=== PATIENT | female | born 1975 | race African-American/Black ===

== ENCOUNTER 2019-01-01 14:33 | Emergency (ER) | payer MEDICAID ==
[~2019-01-01] VITALS: Ht 165.1 cm; Wt 46.3 kg
[~2019-01-01 14:33] MED LIST: PANT40TA3 PO; POLY17PO6 PO
[2019-01-01 14:40] VITALS: Ht 165.1 cm; Wt 46.3 kg
[2019-01-01] MEDS ORDERED: FAMOTIDINE 20 MG TAB PO STA (15:41)
[2019-01-01] MEDS ORDERED: SOD CHLORIDE 0.9% 1,000 ML IV STA (15:41)
[2019-01-01] MEDS ORDERED: METOCLOPRAMIDE 10 MG INJ IV STA (15:41)
[2019-01-01] MEDS ORDERED: AL HYDROX/MG HYDROX/SIMETH 30 ML CUP PO ONE (16:00)
--- NOTE | 2019-01-01 18:50 | ERD ---
ER Documentation Chief Complaint Chief Complaint weak, possible low iron, last transfusion 4mth ago HPI 43-year-old female presenting with generalized weakness and epigastric pain that has been going on for quite some time. She is worried about anemia. She states she has a history of gastric ulcers and ran out of her medications for her stomach. Denies any melena or hematochezia. She is not currently taking her iron because it causes her constipation. She does endorse nausea with one episode of nonbloody and nonbilious vomiting today. No fevers or chills. No dysuria or hematuria. ROS All systems reviewed and are negative except as per history of present illness. Medications Home Meds Active Scripts Pantoprazole* (Protonix*) 40 Mg Tablet.dr, 40 MG PO DAILY, #30 TAB Prov:NISHANT GRIGGS MD 01/01/19 Polyethylene Glycol* (Miralax*) 17 Gm Powd.pack, 17 GM PO DAILY PRN for CONSTIPATION, #30 PACKET Prov:NISHANT GRIGGS MD 01/01/19 Allergies Allergies: Coded Allergies: Penicillins (Unverified Allergy, Unknown, 01/01/19) PMhx/Soc Medical and Surgical Hx: pt denies Surgical Hx Hx Miscellaneous Medical Probl: Yes (sickle cell trait, gastritis) Hx Alcohol Use: No Hx Substance Use: No Hx Tobacco Use: No Smoking Status: Never smoker FmHx Mother has breast cancer Family History: No diabetes Physical Exam Vitals Vital Signs Date Temp Pulse Resp B/P (MAP) Pulse Ox O2 O2 Flow FiO2 Time Delivery Rate 01/01/19 84 16 123/74 100 Room Air 15:46 (90) 01/01/19 98.1 75 18 140/71 100 14:40 (94) Physical Exam Const: No acute distress Head: Atraumatic Eyes: Normal Conjunctiva ENT: Normal External Ears, Nose and Mouth. Neck: Full range of motion. No meningismus. Resp: Clear to auscultation bilaterally Cardio: Regular rate and rhythm, no murmurs Abd: Soft, non tender, non distended. Normal bowel sounds Skin: No petechiae or rashes Back: No midline or flank tenderness Ext: No cyanosis, or edema Neur: Awake and alert Psych: Normal Mood and Affect Result Diagram: 01/01/19 1558 01/01/19 1558 Results 24 hrs Laboratory Tests Test 01/01/19 15:58 White Blood Count 5.4 10^3/ul Red Blood Count 5.36 10^6/ul Hemoglobin 7.9 g/dl Hematocrit 29.1 % Mean Corpuscular Volume 54.3 fl Mean Corpuscular Hemoglobin 14.7 pg Mean Corpuscular Hemoglobin Concent 27.1 g/dl Red Cell Distribution Width 22.8 % Platelet Count 487 10^3/UL Mean Platelet Volume fl Immature Granulocytes % 0.200 % Neutrophils % 59.2 % Lymphocytes % 32.0 % Monocytes % 6.9 % Eosinophils % 1.1 % Basophils % 0.6 % Nucleated Red Blood Cells % 0.0 /100WBC Immature Granulocytes # 0.010 10^3/ul Neutrophils # 3.2 10^3/ul Lymphocytes # 1.7 10^3/ul Monocytes # 0.4 10^3/ul Eosinophils # 0.1 10^3/ul Basophils # 0.0 10^3/ul Nucleated Red Blood Cells # 0.0 10^3/ul Sodium Level 141 mmol/L Potassium Level 3.5 mmol/L Chloride Level 105 mmol/L Carbon Dioxide Level 26 mmol/L Anion Gap 10 Blood Urea Nitrogen 6 mg/dl Creatinine 0.63 mg/dl Est Glomerular Filtrat Rate mL/min > 60 mL/min Glucose Level 93 mg/dl Calcium Level 9.6 mg/dl Total Bilirubin 0.4 mg/dl Direct Bilirubin 0.00 mg/dl Indirect Bilirubin 0.4 mg/dl Aspartate Amino Transf (AST/SGOT) 114 IU/L Alanine Aminotransferase (ALT/SGPT) 128 IU/L Alkaline Phosphatase 69 IU/L Total Protein 9.1 g/dl Albumin 4.7 g/dl Globulin 4.40 g/dl Albumin/Globulin Ratio 1.06 Lipase 68 U/L Current Medications Medications Dose Sig/Marquita Start Time Status Last (Trade) Ordered Route PRN Stop Time Admin Dose Reason Admin Sodium 1,000 ml @ Q1H STAT 01/01/19 DC 01/01/19 Chloride 1,000 mls/hr IV 15:41 16:18 01/01/19 16:40 10 mg ONCE STAT 01/01/19 DC 01/01/19 Metoclopramid IV 15:41 16:18 e HCl 01/01/19 15:44 (Reglan) Famotidine 20 mg ONCE STAT 01/01/19 DC 01/01/19 (Pepcid) PO 15:41 16:18 01/01/19 15:44 Al 30 ml ONCE ONCE 01/01/19 DC 01/01/19 Hydrox/Mg PO 16:00 16:18 Hydrox/Simeth 01/01/19 16:01 icone (Mag-Al Plus) Procedures/MDM EMERGENT LABS AND DIAGNOSTIC STUDIES: Lab Results above were reviewed and interpreted by me. CBC: Thrombocytosis of unclear etiology. evidence of anemia at 7.9 hemoglobin. CMP: Mild transaminitis, unclear etiology. No evidence of clinically significant electrolyte abnormality, acidosis, renal failure, hypoglycemia or biliary obstruction Lipase: no evidence of pancreatitis Troponin within normal limits, not indicative of cardiac ischemia Lactate within normal limits without evidence of sepsis or tissue hypoperfusion UA: no evidence of infection 12-lead EKG was interpreted by Andrea Griggs MD: Normal Sinus Rhythm Normal axis Normal intervals No acute ST or T wave changes suggestive of acute ischemia or STEMI. Radiology Results as interpreted by Radiology below were reviewed by Maggy Griggs MD: Chest x-ray shows no acute abnormalities Initial Nursing notes reviewed. Previous Medical Records requested via the Electronic Health Record. EMERGENCY DEPARTMENT COURSE / MEDICAL DECISION MAKING: Patient is presenting with generalized weakness and epigastric discomfort due to her gastric ulcers. I doubt cholecystitis, pancreatitis, appendicitis, bowel obstruction. No symptoms of GI bleed. Patient treated with medications. Upon reevaluation, she is feeling much better. I do suspect that there was some component of dehydration. I recommended restarting her Protonix and that we will give her MiraLAX for constipation. Advised restarting her iron supp lementation as well. Follow-up with a primary care doctor was discussed. I also discussed the findings of transaminitis on her labs and recommended follow- up for this as she will need further work-up. Patient understands discharge plan. Return precautions given. Patient's blood pressure was elevated (>120/80) but appears stable without evidence of hypertensive emergency or urgency. The patient was counseled about the risks of hypertension and urged to pursue outpatient monitoring and therapy within a week with their primary care physician. Departure Diagnosis: Primary Impression: Generalized weakness Additional Impressions: History of peptic ulcer Anemia Anemia type: unspecified type Qualified Codes: D64.9 - Anemia, unspecified Transaminitis Condition: Stable Patient Instructions: Anemia, Gastritis Vs. Ulcer Additional Instructions: Call your primary care doctor TOMORROW for an appointment during the next 1 WEEK.Tell the clerical secretary that you were referred from this facility.See the doctor sooner or return here if your condition worsens before your appointment time. NISHANT GRIGGS MD Jan 01, 2019 18:50
[2019-01-01 19:40] VITALS: BP 128/83; PULSE 84; RESP 18
== END 2019-01-01 19:45 | disposition home or self-care (01) ==
LOC: E/R 14:33
DX: D64.9 Anemia, unspecified (principal); R74.0 Nonspecific elevation of levels of transaminase and lactic acid dehydrogenase [LDH]; Z87.11 Personal history of peptic ulcer disease
CPT/HCPCS: 71045; 80053; 81025; 83690; 85025; J2765; J7030; Z7610; 36415; 93005; 96374